=== PATIENT | female | born 2005 | race Caucasian/White ===

== ENCOUNTER 2024-02-03 11:39 | Emergency (ER) | payer OTHER ==
[~2024-02-03] VITALS: Ht 160 cm; Wt 63.7 kg
[2024-02-03 11:59] VITALS: BP 118/64; PULSE 74; RESP 20; TEMP 98.1; O2SAT 99
--- NOTE | 2024-02-03 12:12 | NUR ---
PT TO BED 5
--- NOTE | 2024-02-03 12:22 | NUR ---
18YO M PRESENTS REQUESTING AN ULTRASOUND, PT STATES LMP SOMETIME IN AUGUST. TOOK "MORNING AFTER PILL" IN JULY AND HAS NOT HAD A PERIOD. ONE VOMITING EPISODE LAST WEEK. DENIES FEVER, CHILLS, V, D, SOB, CP, VAGINAL DISCHARGE/BLEED. PT STATES SHE TOOK TEST AT HOME W/POSITIVE RESULTS. NAD, SAFETY MAINTAINED, CALL LIGHT IN REACH. HX: DENIES NKA
--- NOTE | 2024-02-03 14:08 | NUR ---
Patient discharged with v/s stable. Written and verbal after care instructions given and explained. Patient verbalized understanding. Ambulatory with steady gait. All questions addressed prior to discharge. Advised to follow up with PMD.
== END 2024-02-03 14:08 | disposition home or self-care (01) ==
LOC: MED 11:39
DX: O34.81 Maternal care for other abnormalities of pelvic organs, first trimester (principal); N83.201 Unspecified ovarian cyst, right side; O02.81 Inappropriate change in quantitative human chorionic gonadotropin (hCG) in early pregnancy; Z3A.13 13 weeks gestation of pregnancy
CPT/HCPCS: 36415; 76801; 81025; 84702; 99284